=== PATIENT | male | born 1975 | race African-American/Black ===

== ENCOUNTER 2016-09-12 07:36 | Emergency (ER) | payer OTHER ==
[~2016-09-12] VITALS: Ht 170.2 cm; Wt 88.6 kg
[2016-09-12] MEDS ORDERED: AMPICILLIN SODIUM/SULBACTAM NA 3 GM in SODIUM CHLORIDE 0.9% 100 ML IV ONE (08:15)
[2016-09-12] MEDS ORDERED: IBUPROFEN 600 MG TABLET PO ONE (08:15)
[2016-09-12 09:04] VITALS: BP 126/76
== END 2016-09-12 09:40 | disposition home or self-care (01) ==
LOC: EMS 07:39
DX: K04.7 Periapical abscess without sinus (principal)
CPT/HCPCS: 96365; 99284; J0295; J7050

== ENCOUNTER 2016-09-24 19:11 | Emergency (ER) | payer OTHER ==
[~2016-09-24] VITALS: Ht 170.2 cm; Wt 88.6 kg
[2016-09-24] MEDS ORDERED: BUPIVACAINE HCL 0.5% 50 ML VIAL SQ ONE (20:00)
[2016-09-24] MEDS ORDERED: HYDROCODONE/ACETAMINOPHEN 5-325 MG TABLET PO ONE ×2 (20:00→21:30)
[2016-09-24] MEDS ORDERED: BUPIVACAINE HCL/PF 0.5% 30 ML VIAL SQ ONE (20:15)
[2016-09-24 21:05] VITALS: BP 140/90
== END 2016-09-24 22:18 | disposition home or self-care (01) ==
LOC: EMS 19:13
DX: S01.01XA Laceration without foreign body of scalp, initial encounter (principal); S03.2XXA Dislocation of tooth, initial encounter; S50.11XA Contusion of right forearm, initial encounter; S50.01XA Contusion of right elbow, initial encounter; S60.222A Contusion of left hand, initial encounter; Y00.XXXA Assault by blunt object, initial encounter; Y93.89 Activity, other specified; Y92.89 Other specified places as the place of occurrence of the external cause; Y99.8 Other external cause status
CPT/HCPCS: 12002; 29125; 70450; 73080; 73110; 99284; J3490

== ENCOUNTER 2016-10-07 17:03 | Emergency (ER) | payer OTHER ==
[~2016-10-07] VITALS: Ht 172.7 cm; Wt 84.1 kg
[2016-10-07 18:09] VITALS: BP 141/93
[2016-10-07] MEDS ORDERED: KETOROLAC TROMETHAMINE 30 MG/ML VIAL IM ONE (18:30)
== END 2016-10-07 19:16 | disposition home or self-care (01) ==
LOC: EMS 17:10
DX: Z48.02 Encounter for removal of sutures (principal)
CPT/HCPCS: 96372; 99283; J1885

== ENCOUNTER 2017-02-28 16:37 | Emergency (ER) | payer OTHER ==
[~2017-02-28] VITALS: Ht 170.2 cm; Wt 84.1 kg
[2017-02-28] MEDS ORDERED: HYDR25TA PO (16:47)
[2017-02-28] MEDS ORDERED: BLOOD PRESSURE PO (16:47)
[2017-02-28 17:09] VITALS: BP 138/102
== END 2017-02-28 17:35 | disposition home or self-care (01) ==
LOC: EMS 16:40
DX: B85.0 Pediculosis due to Pediculus humanus capitis (principal); I10 Essential (primary) hypertension
CPT/HCPCS: 99282; 99283

== ENCOUNTER 2017-08-17 12:39 | Emergency (ER) | payer OTHER ==
[~2017-08-17] VITALS: Ht 170.2 cm; Wt 88.6 kg
[~2017-08-17 12:39] MED LIST: BLOOD PRESSURE PO; HYDR25TA PO
[2017-08-17] MEDS ORDERED: IBUPROFEN 800 MG TABLET PO ONE (15:15)
[2017-08-17] MEDS ORDERED: ACETAMINOPHEN/CODEINE 300-30 MG TABLET PO ONE (16:15)
[2017-08-17 16:33] VITALS: BP 127/71
== END 2017-08-17 16:33 | disposition home or self-care (01) ==
LOC: EMS 12:41
DX: S93.402A Sprain of unspecified ligament of left ankle, initial encounter (principal); I10 Essential (primary) hypertension; J45.909 Unspecified asthma, uncomplicated; Z79.899 Other long term (current) drug therapy; V28.0XXA Motorcycle driver injured in noncollision transport accident in nontraffic accident, initial encounter; Y93.89 Activity, other specified; Y92.410 Unspecified street and highway as the place of occurrence of the external cause; Y99.8 Other external cause status
CPT/HCPCS: 29515; 99284

== ENCOUNTER 2017-09-18 10:22 | Emergency (ER) | payer OTHER ==
[~2017-09-18] VITALS: Ht 170.2 cm; Wt 84.5 kg
[2017-09-18 11:22] LABS: BASOPHILS % (AUTO) 0.3 % (0.0-2.0); EOSINOPHILS % (AUTO) 5.8 % (1.0-6.0); HEMATOCRIT 41.1 % (41-53); HEMOGLOBIN 13.8 g/dL (13.5-17.5); LYMPHOCYTES # (AUTO) 2.2 K/uL (1.0-4.8); MEAN CORPUSCULAR HEMOGLOBIN 30.2 pg (26.0-34.0); MEAN CORPUSCULAR HGB CONC 33.5 G/dL (31.0-37.0); MEAN CORPUSCULAR VOLUME 90 fL (80-100); MONOCYTES # (AUTO) 0.5 K/uL (0.1-1.0); MONOCYTES % (AUTO) 7.4 % (2.0-9.0); NEUTROPHILS # (AUTO) 3.3 K/uL (1.8-7.7); NEUTROPHILS % (AUTO) 51.5 % (40.0-70.0); PLATELET COUNT (AUTO) 271 K/uL (150-450); RED BLOOD CELL COUNT(AUTO) 4.56 MIL/uL (4.50-5.90); RED CELL DISTRIBUTION WIDTH 13.6 % (11.5-14.5)
[2017-09-18 11:26] LABS: APPEARANCE,URINE CLEAR (CLEAR); BILIRUBIN,URINE NEGATIVE (NEGATIVE); GLUCOSE, URINE (UA) NEGATIVE (NEGATIVE); KETONES,URINE NEGATIVE (NEGATIVE); LEUKOCYTE ESTERASE ,URINE NEGATIVE (NEGATIVE); NITRATE,URINE NEGATIVE (NEGATIVE); OCCULT BLOOD,URINE NEGATIVE (NEGATIVE); PH,URINE 6.5 (5.0-8.0); PROTEIN,URINE NEGATIVE (NEGATIVE); UROBILINOGEN,URINE 0.2 mg/dL (<=1.0)
[2017-09-18 11:29] LABS: AMPHET/METH SCREEN,URINE NEGATIVE (NEGATIVE); BARBITURATE SCREEN, URINE NEGATIVE (NEGATIVE); BENZODIAZEPINES SCREEN,URINE NEGATIVE (NEGATIVE); CANNABINOID SCREEN,URINE POSITIVE (NEGATIVE); COCAINE SCREEN,URINE NEGATIVE (NEGATIVE); METHADONE SCREEN, URINE NEGATIVE (NEGATIVE); OPIATE SCREEN,URINE NEGATIVE (NEGATIVE)
[2017-09-18 11:30] LABS: ANION GAP -1 mmol/L (8-16); CALCIUM, TOTAL 8.8 mg/dL (8.8-10.5); CARBON DIOXIDE 35 mmol/L (22-29); CHLORIDE 104 mmol/L (98-107); CREATININE 1.04 mg/dL (0.60-1.30); GLOMERULAR FILTR. RATE CALC > 60 mL/min (>60); GLUCOSE,RANDOM 92 mg/dL (70-110); POTASSIUM 3.4 mmol/L (3.5-5.1); SODIUM SERUM 138 mmol/L (136-145); UREA NITROGEN, BLOOD 12 mg/dL (7-18)
[2017-09-18 11:31] LABS: PHENCYCLIDINE SCREEN,URINE POSITIVE (NEGATIVE)
[2017-09-18 11:39] LABS: ALANINE AMINOTRANSFERASE 37 U/L (12-78); ALBUMIN 3.7 g/dL (3.4-5.0); ALKALINE PHOSPHATASE 117 U/L (46-116); ASPARTATE AMINOTRANSFERASE 26 U/L (15-37); BILIRUBIN,TOTAL 0.5 mg/dL (0.1-1.0); TOTAL PROTEIN, SERUM 7.8 g/dL (6.4-8.2)
[2017-09-18] MEDS ORDERED: ACETAMINOPHEN 500 MG TABLET PO ONE (12:15)
[2017-09-18] MEDS ORDERED: GuaiFENesin/D-METHORPHAN/PHENYLEPH 5 ML LIQUID ORAL.SYG PO ONE (12:15)
[2017-09-18] MEDS ORDERED: IBUPROFEN 800 MG TABLET PO ONE (12:15)
[2017-09-18 13:03] VITALS: BP 141/100
== END 2017-09-18 13:09 | disposition home or self-care (01) ==
LOC: EMS 10:24
DX: S82.832G Other fracture of upper and lower end of left fibula, subsequent encounter for closed fracture with delayed healing (principal); J06.9 Acute upper respiratory infection, unspecified; I10 Essential (primary) hypertension; J45.909 Unspecified asthma, uncomplicated; F17.210 Nicotine dependence, cigarettes, uncomplicated; Z91.14 Patient's other noncompliance with medication regimen; V29.9XXD Motorcycle rider (driver) (passenger) injured in unspecified traffic accident, subsequent encounter
CPT/HCPCS: 36415; 73610; 80053; 80307; 81003; 85025; 99285; 99406; G0480

== ENCOUNTER 2020-10-04 17:04 | Emergency (ER) | payer OTHER ==
[~2020-10-04] VITALS: Ht 170.2 cm; Wt 104.5 kg
[~2020-10-04 17:04] MED LIST changes: -HYDR25TA PO; +HYDR25TA2 PO
[2020-10-04] MEDS ORDERED: SULFAMETHOX/TRIMETH DS 800-160 MG/TABLET PO ONE (18:30)
[2020-10-04] MEDS ORDERED: CefTRIAXone SODIUM 1 GM/VIAL IM ONE (18:30)
[2020-10-04] MEDS ORDERED: LIDOCAINE/PF 1% 2 ML VIAL IM ONE (18:30)
[2020-10-04 19:24] VITALS: BP 141/58
== END 2020-10-04 20:00 | disposition left against medical advice (07) ==
LOC: EMS 17:04
DX: L02.31 Cutaneous abscess of buttock (principal); L02.211 Cutaneous abscess of abdominal wall; J45.909 Unspecified asthma, uncomplicated; I10 Essential (primary) hypertension; F17.210 Nicotine dependence, cigarettes, uncomplicated; F12.90 Cannabis use, unspecified, uncomplicated
CPT/HCPCS: 96372; 99283; J0696; J3490

== ENCOUNTER 2020-10-06 13:36 | Emergency (ER) | payer OTHER ==
[~2020-10-06] VITALS: Ht 170.2 cm; Wt 81.8 kg
[2020-10-06] MEDS ORDERED: CLINDAMYCIN HCL 150 MG CAPSULE PO ONE (14:30)
[2020-10-06] MEDS ORDERED: PERTUSS(ACELL),DIPH,TET VAC/PF 0.5 ML SYRINGE IM. ONE (14:30)
[2020-10-06] MEDS ORDERED: KETOROLAC TROMETHAMINE 30 MG/ML VIAL IM ONE (14:30)
[2020-10-06] MEDS ORDERED: LIDOCAINE 1%/EPI 1:200,000/PF 30 ML VIAL SQ ONE (14:30)
[2020-10-06] MEDS ORDERED: SULFAMETHOX/TRIMETH DS 800-160 MG/TABLET PO ONE (14:30)
[2020-10-06] MEDS ORDERED: KETOROLAC TROMETHAMINE 30 MG/ML VIAL IVP ONE (15:15)
[2020-10-06 15:25] LABS: BASOPHILS % (AUTO) 0.8 % (0.0-2.0); EOSINOPHILS % (AUTO) 2.3 % (1.0-6.0); HEMATOCRIT 41.4 % (41-53); HEMOGLOBIN 13.5 g/dL (13.5-17.5); LYMPHOCYTES # (AUTO) 1.8 K/uL (1.0-4.8); LYMPHOCYTES % (AUTO) 20.3 % (22.0-44.0); MEAN CORPUSCULAR HEMOGLOBIN 29.8 pg (26.0-34.0); MEAN CORPUSCULAR HGB CONC 32.5 G/dL (31.0-37.0); MEAN CORPUSCULAR VOLUME 92 fL (80-100); MONOCYTES # (AUTO) 1.1 K/uL (0.1-1.0); MONOCYTES % (AUTO) 12.6 % (2.0-9.0); NEUTROPHILS # (AUTO) 5.6 K/uL (1.8-7.7); PLATELET COUNT (AUTO) 316 K/uL (150-450); RED BLOOD CELL COUNT(AUTO) 4.51 MIL/uL (4.50-5.90); RED CELL DISTRIBUTION WIDTH 13.8 % (11.5-14.5)
[2020-10-06] MEDS ORDERED: SODIUM CHLORIDE 0.9% 1,000 ML IV ONE (16:15)
[2020-10-06 16:16] LABS: ANION GAP 10 mmol/L (8-16); CALCIUM, TOTAL 9.4 mg/dL (8.8-10.5); CARBON DIOXIDE 29 mmol/L (22-29); CHLORIDE 105 mmol/L (98-107); CREATININE 1.24 mg/dL (0.60-1.30); GLOMERULAR FILTR. RATE CALC > 60 mL/min (>60); GLUCOSE,RANDOM 94 mg/dL (70-110); POTASSIUM 3.8 mmol/L (3.5-5.1); SODIUM SERUM 144 mmol/L (136-145); UREA NITROGEN, BLOOD 11 mg/dL (7-18)
[2020-10-06 16:22] LABS: ALANINE AMINOTRANSFERASE 29 U/L (12-78); ALBUMIN 3.2 g/dL (3.4-5.0); ALKALINE PHOSPHATASE 101 U/L (46-116); ASPARTATE AMINOTRANSFERASE 26 U/L (15-37); BILIRUBIN,TOTAL 0.4 mg/dL (0.1-1.0); TOTAL PROTEIN, SERUM 7.8 g/dL (6.4-8.2)
[2020-10-06] MEDS ORDERED: SODIUM CHLORIDE 0.9% 100 ML ONE (16:23)
[2020-10-06] MEDS ORDERED: IOHEXOL 350 MG/ML 100 ML VIAL ONE (16:23)
[2020-10-06 18:00] VITALS: BP 133/89
[2020-10-06] MEDS ORDERED: MetroNIDAZOLE 250 MG TABLET PO ONE (18:15)
[2020-10-06] MEDS ORDERED: CIPROFLOXACIN HCL 250 MG TABLET PO ONE (18:15)
== END 2020-10-06 18:20 | disposition left against medical advice (07) ==
LOC: EMS 13:36
DX: S21.159A Open bite of unspecified front wall of thorax without penetration into thoracic cavity, initial encounter (principal); K61.1 Rectal abscess; L02.211 Cutaneous abscess of abdominal wall; F17.210 Nicotine dependence, cigarettes, uncomplicated; F12.90 Cannabis use, unspecified, uncomplicated; W50.3XXA Accidental bite by another person, initial encounter; Y93.89 Activity, other specified; Y92.89 Other specified places as the place of occurrence of the external cause; Y99.8 Other external cause status
CPT/HCPCS: 36415; 46040; 74177; 80053; 85025; 90471; 90715; 96361; 96374; 99285; A9575; J1885; J3490; J7030; J7050

== ENCOUNTER 2021-02-05 12:48 | Emergency (ER) | payer OTHER ==
[~2021-02-05] VITALS: Ht 170.2 cm; Wt 81.8 kg
[2021-02-05 15:14] VITALS: BP 117/77
== END 2021-02-05 16:41 | disposition home or self-care (01) ==
LOC: EMS 12:48
DX: M79.641 Pain in right hand (principal); I10 Essential (primary) hypertension; J45.909 Unspecified asthma, uncomplicated; F12.90 Cannabis use, unspecified, uncomplicated; F17.210 Nicotine dependence, cigarettes, uncomplicated
CPT/HCPCS: 99283

== ENCOUNTER 2021-10-27 14:20 | Emergency (ER) | payer OTHER ==
[~2021-10-27] VITALS: Ht 170.2 cm; Wt 88.6 kg
[2021-10-27] MEDS ORDERED: SODIUM CHLORIDE 0.9% 250 ML IRRIG SOLUTION BOTTLE IRRIG ONE (16:30)
[2021-10-27] MEDS ORDERED: LIDOCAINE 1% 10 ML VIAL ID ONE (16:30)
[2021-10-27] MEDS ORDERED: NEOMYCIN/BACITRACIN/POLYMYXIN B OINTMENT PACKET TP ONE (16:30)
[2021-10-27] MEDS ORDERED: IBUPROFEN 600 MG TABLET PO ONE (16:30)
[2021-10-27] MEDS ORDERED: BACITRACIN 28 GM OINTMENT TP ONE (16:30)
[2021-10-27] MEDS ORDERED: CEPH-558 PO (16:37)
[2021-10-27 17:02] VITALS: BP 116/81
== END 2021-10-27 17:15 | disposition home or self-care (01) ==
LOC: EMS 14:21
DX: S50.812A Abrasion of left forearm, initial encounter (principal); F10.20 Alcohol dependence, uncomplicated; F12.90 Cannabis use, unspecified, uncomplicated; F17.210 Nicotine dependence, cigarettes, uncomplicated; J45.909 Unspecified asthma, uncomplicated; I10 Essential (primary) hypertension; V19.9XXA Pedal cyclist (driver) (passenger) injured in unspecified traffic accident, initial encounter; Y93.I9 Activity, other involving external motion; Y92.89 Other specified places as the place of occurrence of the external cause; Y99.8 Other external cause status
CPT/HCPCS: 99283; J3490

== ENCOUNTER 2021-12-03 11:51 | Emergency (ER) | payer OTHER ==
[~2021-12-03] VITALS: Ht 170.2 cm; Wt 81.8 kg
[~2021-12-03 11:51] MED LIST changes: -BLOOD PRESSURE PO; +CEPH-558 PO; -HYDR25TA2 PO
[2021-12-03] MEDS ORDERED: LISI-892 PO (12:27)
[2021-12-03] MEDS ORDERED: AMOX1TAB16 PO (17:20)
[2021-12-03] MEDS ORDERED: IBUP-2070 PO (17:23)
[2021-12-03] MEDS ORDERED: IBUPROFEN 600 MG TABLET PO ONE (17:30)
[2021-12-03 18:02] VITALS: BP 130/60
== END 2021-12-03 18:06 | disposition home or self-care (01) ==
LOC: EMS 11:51
DX: S40.271A Other superficial bite of right shoulder, initial encounter (principal); S10.87XA Other superficial bite of other specified part of neck, initial encounter; J45.909 Unspecified asthma, uncomplicated; E78.00 Pure hypercholesterolemia, unspecified; I10 Essential (primary) hypertension; F17.210 Nicotine dependence, cigarettes, uncomplicated; F12.90 Cannabis use, unspecified, uncomplicated; Y04.1XXA Assault by human bite, initial encounter; Y93.89 Activity, other specified; Y92.89 Other specified places as the place of occurrence of the external cause; Y99.8 Other external cause status
CPT/HCPCS: 99283

== ENCOUNTER 2022-04-11 21:09 | Emergency (ER) | payer OTHER ==
[~2022-04-11] VITALS: Ht 170.2 cm; Wt 81.0 kg
[~2022-04-11 21:09] MED LIST changes: +AMOX1TAB16 PO; -CEPH-558 PO; +IBUP-1492 PO; +LISI-892 PO
[2022-04-12] MEDS ORDERED: KETOROLAC TROMETHAMINE 30 MG/ML VIAL IM ONE (06:30)
[2022-04-12 09:22] LABS: COVID AG,FIA SOURCE NASAL SWAB
[2022-04-12 09:44] LABS: INFLUENZA TYPE A NEGATIVE FOR TYPE A (NEGATIVE); INFLUENZA TYPE B NEGATIVE FOR TYPE B (NEGATIVE)
[2022-04-12] MEDS ORDERED: IBUP-1492 PO (10:18)
[2022-04-12] MEDS ORDERED: AZIT250T9 PO (10:18)
[2022-04-12] MEDS ORDERED: LISI-660 PO (10:18)
[2022-04-12 10:56] VITALS: BP 130/85
== END 2022-04-12 10:58 | disposition home or self-care (01) ==
LOC: EMS 21:41
DX: J06.9 Acute upper respiratory infection, unspecified (principal); J45.909 Unspecified asthma, uncomplicated; E78.00 Pure hypercholesterolemia, unspecified; I10 Essential (primary) hypertension; F17.210 Nicotine dependence, cigarettes, uncomplicated; F12.90 Cannabis use, unspecified, uncomplicated; Z20.822 Contact with and (suspected) exposure to COVID-19
CPT/HCPCS: 99284; 87426; 87804; 71045; 96372; J1885